=== PATIENT | male | born 1985 | race American Indian/Alaskan Native ===

== ENCOUNTER 2016-10-12 19:55 | Emergency (ER) | payer OTHER ==
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
[2016-10-12] MEDS ORDERED: TORADOL IM ONE (23:52)
[2016-10-12 23:53] VITALS: BP 149/99
[2016-10-12] MEDS ORDERED: NORCO 5/325 PO ONE (23:53)
== END 2016-10-13 00:49 | disposition home or self-care (01) ==
LOC: ED 19:55
DX: M54.5 Low back pain (principal); V89.2XXS Person injured in unspecified motor-vehicle accident, traffic, sequela
CPT/HCPCS: 96372; 99282; J1885

== ENCOUNTER 2018-05-06 12:32 | Emergency (ER) | payer BC, OTHER ==
[2018-05-06 12:59] VITALS: BP 152/95
[2018-05-06 13:58] LABS: Basophils % (Auto) 0.8 % (0.0-1.8); Eosinophils # (Auto) 0.1 K/mm3 (0.0-0.4); Hematocrit 44.4 % (35.5-45.6); Lymphocytes # (Auto) 1.5 K/mm3 (1.2-5.4); Lymphocytes % (Auto) 39.8 % (13.4-35.0); Mean Corpuscular HGB Conc 34 % (32-34); Mean Corpuscular Hemoglobin 31 pg (28-32); Mean Corpuscular Volume 91 fl (84-94); Monocytes # (Auto) 0.4 K/mm3 (0.0-0.8); Monocytes % (Auto) 9.9 % (0.0-7.3); Platelet Count 211 K/mm3 (140-440); Red Cell Distribution Width 13.4 % (13.2-15.2)
[2018-05-06 14:15] LABS: Alanine Aminotransferase 37 units/L (7-56); Albumin 4.1 g/dL (3.9-5); BUN/Creatinine Ratio 12; Blood Urea Nitrogen 11 mg/dL (9-20); Calcium 9.2 mg/dL (8.4-10.2); Hemolysis Index 57
[2018-05-06] MEDS ORDERED: TORADOL IM ONE (14:41)
[2018-05-06] MEDS ORDERED: DILAUDID IM ONE (14:41)
--- NOTE | 2018-05-06 15:06 | Emergency Department Report ---
HPI - General Chief Complaint: Back Pain/Injury Time Seen by Provider: 05/06/18 14:33 - HPI HPI: Room 7 The patient is a 32-year-old male presented with a chief complaint of back pain. The patient states he was walking with his grocery basket when he slipped and almost "did a split" but caught himself before falling to the ground. The patient states he believes he pulled something in his back and now has right low back pain. Patient states he has a history of "bulging disc" in his low back but he does not recall the level. Patient denies bowel or bladder incontinence. Patient denies numbness. The patient gets his pain a score of 10 /10. Location: Low back Duration: Just prior to arrival Quality: Pain Severity: 10/10 Modifying factors: [see above] Context: [see above] Mode of transportation: [not driving] ED Past Medical Hx - Past Medical History Additional medical history: Disc bulge low back - Surgical History Past Surgical History?: No - Family History Family history: no significant - Social History Smoking Status: Never Smoker Substance Use Type: Alcohol (occasional) - Medications Home Medications: Home Medications Medication Instructions Recorded Confirmed Last Taken Type Naproxen [Naprosyn TAB] 500 mg PO BID PRN #30 tablet 10/13/16 Unknown Rx methOCARBAMOL [Robaxin TAB] 500 mg PO BID #30 tab 10/13/16 Unknown Rx Cyclobenzaprine [Flexeril] 10 mg PO TID PRN #14 tablet 05/06/18 Unknown Rx HYDROcodone/APAP 5-325 [[place] 1 - 2 each PO Q6HR PRN #14 tablet 05/06/18 Unknown Rx 5/325] Ibuprofen [Motrin 800 MG tab] 800 mg PO Q8HR PRN #20 tablet 05/06/18 Unknown Rx ED Review of Systems ROS: Stated complaint: BACK PAIN Other details as noted in HPI Constitutional: no symptoms reported Eyes: denies: eye pain ENT: denies: throat pain Respiratory: no symptoms reported Cardiovascular: denies: chest pain Endocrine: no symptoms reported Gastrointestinal: denies: abdominal pain Genitourinary: denies: dysuria Musculoskeletal: back pain Neurological: denies: headache Physical Exam - Physical Exam Vital Signs: Vital Signs 05/06/18 12:53 Temperature 98.3 F Pulse Rate 92 H Respiratory 18 Rate Blood Pressure 152/95 Blood Pressure 152/92 [Right] O2 Sat by Pulse 96 Oximetry Physical Exam: GENERAL: The patient is well-developed well-nourished male lying on stretcher appearing to be in moderate discomfort. [] HEENT: Normocephalic. Atraumatic. Extraocular motions are intact. Patient has moist mucous membranes. NECK: Supple. Trachea midline CHEST/LUNGS: Clear to auscultation. There is no respiratory distress noted. HEART/CARDIOVASCULAR: Regular. There is no tachycardia. There is no gallop rub or murmur. ABDOMEN: Abdomen is soft, nontender. Patient has normal bowel sounds. There is no abdominal distention. SKIN: There is no rash. There is no edema. There is no diaphoresis. NEURO: The patient is awake, alert, and oriented. The patient is cooperative. The patient has no focal neurologic deficits. The patient has normal speech. Moves all extremities well MUSCULOSKELETAL: There is no axial step off. There is right lumbar paraspinous tenderness. There is no evidence of acute injury. ED Course Vital Signs 05/06/18 12:53 Temperature 98.3 F Pulse Rate 92 H Respiratory 18 Rate Blood Pressure 152/95 Blood Pressure 152/92 [Right] O2 Sat by Pulse 96 Oximetry - Reevaluation(s) Reevaluation #1: 05/06/18 16:03 Patient states his pain is improving ED Medical Decision Making - Lab Data Result diagrams: 05/06/18 13:08 05/06/18 13:08 Laboratory Tests 05/06/18 05/06/18 13:08 13:08 WBC 3.8 L RBC 4.90 Hgb 15.0 Hct 44.4 MCV 91 MCH 31 MCHC 34 RDW 13.4 Plt Count 211 Lymph % (Auto) 39.8 H [place] % (Auto) 9.9 H Eos % (Auto) 2.0 Baso % (Auto) 0.8 Lymph # 1.5 [place] # 0.4 Eos # 0.1 Baso # 0.0 Seg Neutrophils % 47.5 Seg Neutrophils # 1.8 Sodium 139 Potassium 4.6 Chloride 100.2 Carbon Dioxide 25 Anion Gap 18 BUN 11 Creatinine 0.9 Estimated GFR > 60 BUN/Creatinine Ratio 12 Glucose 93 Calcium 9.2 Total Bilirubin 0.30 ALT 37 Alkaline Phosphatase 56 Total Protein 6.8 Albumin 4.1 Albumin/Globulin Ratio 1.5 - Radiology Data Radiology results: image reviewed (lumbar spine x-ray) interpreted by me: Lumbar spine x-ray-no acute fracture - Differential Diagnosis lumbar strain Critical care attestation.: If time is entered above; I have spent that time in minutes in the direct care of this critically ill patient, excluding procedure time. ED Disposition Clinical Impression: Acute lumbar myofascial strain Disposition: TO HOME OR SELFCARE Is pt being admited?: No Does the pt Need Aspirin: No Condition: Stable Instructions: Muscle Strain (ED) Additional Instructions: Return to the emergency department immediately should you develop worsening symptoms, fever, inability to tolerate food or liquid or any other concerns. Prescriptions: Cyclobenzaprine [Flexeril] 10 mg PO TID PRN #14 tablet PRN Reason: Muscle Spasm HYDROcodone/APAP 5-325 [[place] 5/325] 1 - 2 each PO Q6HR PRN #14 tablet PRN Reason: Pain Ibuprofen [Motrin 800 MG tab] 800 mg PO Q8HR PRN #20 tablet PRN Reason: Pain, Moderate (4-6) Referrals: PRIMARY CAREMD [Primary Care Provider] - 3-5 Days JO ANN CHACON MD [Staff Physician] - 2-3 Days (Dr. Chacon is an orthopedic surgeon. Please follow up with him for further evaluation) Time of Disposition: 16:03
--- NOTE | 2018-05-06 15:51 | XRay Report ---
FINAL REPORT PROCEDURE: XR SPINE LUMBOSACRAL 2-3V TECHNIQUE: Lumbar spine radiographs, including AP, lateral, and lumbosacral spot views. CPT 29392 HISTORY: Back Pain COMPARISON: No prior studies are available for comparison. FINDINGS: Alignment: Normal. Vertebral body heights/Disk spaces: Normal. Fracture(s): None. Facets: Normal. Bone mineralization: Normal. IMPRESSION: Negative examination.
== END 2018-05-06 16:26 | disposition home or self-care (01) ==
LOC: ED 12:32
DX: S39.012A Strain of muscle, fascia and tendon of lower back, initial encounter (principal); W01.198A Fall on same level from slipping, tripping and stumbling with subsequent striking against other object, initial encounter; Y93.89 Activity, other specified; Y92.89 Other specified places as the place of occurrence of the external cause; Y99.8 Other external cause status
CPT/HCPCS: 36415; 72100; 80053; 85025; 96372; 99284; J1170; J1885